=== PATIENT | female | born 1955 | race Caucasian/White ===

== ENCOUNTER 2019-07-27 13:39 | Emergency (ER) | payer SELFPAY ==
[~2019-07-27] VITALS: Ht 149.9 cm; Wt 85.0 kg
[~2019-07-27 13:39] MED LIST: ENAL10TA PO
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
[2019-07-27] MEDS ORDERED: LISINOPRIL-HCTZ (13:55)
[2019-07-27] MEDS ORDERED: AMLODIPINE (13:55)
--- NOTE | 2019-07-27 13:58 | NUR ---
PA AT BEDSIDE.
--- NOTE | 2019-07-27 14:27 | NUR ---
pt at xray, unable to medicate.
[2019-07-27] MEDS ORDERED: HYDROcodone/APAP 5/325 TABLET PO ONE (14:30)
[2019-07-27] MEDS ORDERED: HYDROcodone/APAP 5/325 TABLET ONE (14:36)
--- NOTE | 2019-07-27 14:44 | NUR ---
LUNCH RN: Pt medicated for pain.
[2019-07-27 15:05] VITALS: BP 149/67
--- NOTE | 2019-07-27 15:19 | NUR ---
PT TO RADIOLOGY.
--- NOTE | 2019-07-27 15:39 | NUR ---
PT BACK FROM IMAGING.
--- NOTE | 2019-07-27 16:06 | NUR ---
Patient/Caregiver given discharge instructions and they have confirmed that they understand the instructions. Patient ambulatory with steady gait.
== END 2019-07-27 16:21 | disposition home or self-care (01) ==
LOC: ED 16:15
DX: S16.1XXA Strain of muscle, fascia and tendon at neck level, initial encounter (principal); S39.012A Strain of muscle, fascia and tendon of lower back, initial encounter; M47.896 Other spondylosis, lumbar region; V49.49XA Driver injured in collision with other motor vehicles in traffic accident, initial encounter; I10 Essential (primary) hypertension; Y92.410 Unspecified street and highway as the place of occurrence of the external cause; Y99.8 Other external cause status; Y93.89 Activity, other specified
CPT/HCPCS: 70450; 72110; 72125; 99284

== ENCOUNTER 2021-01-24 16:46 | Emergency (ER) | payer OTHER ==
[~2021-01-24] VITALS: Ht 139.7 cm; Wt 87.5 kg
[~2021-01-24 16:46] MED LIST changes: +AMLODIPINE; -ENAL10TA PO; +ENAL10TA9 PO; +LISINOPRIL-HCTZ
--- NOTE | 2021-01-24 16:58 | NUR ---
EKG IN TRIAGE.
[2021-01-24] MEDS ORDERED: PIOG15TA69 PO (17:01)
[2021-01-24] MEDS ORDERED: METF500T17 PO (17:01)
[2021-01-24] MEDS ORDERED: LISI1TAB39 PO (17:01)
[2021-01-24] MEDS ORDERED: AMLO-211 PO (17:01)
[2021-01-24 17:58] LABS: BASOPHILS % (AUTO) 1 % (0-1); EOSINOPHILS % (AUTO) 1 % (1-7); LYMPHOCYTES % (AUTO) 17 % (22-44); MEAN CORPUSCULAR HEMOGLOBIN 30.4 pg (27.0-34.8); MEAN CORPUSCULAR HGB CONC 33.3 g/dL (32.4-35.8); MEAN PLATELET VOLUME 10.3 fL (7.4-10.4); MONOCYTES % (AUTO) 10 % (2-9); NEUTROPHILS % (AUTO) 72 % (42-75); PLATELET COUNT 237 x10^3/uL (130-400); RED BLOOD COUNT 4.36 x10^6/uL (3.82-5.3); RED CELL DISTRIBUTION WIDTH 14.2 % (9.6-15.2)
[2021-01-24 18:06] LABS: ALANINE AMINOTRANSFERASE 24 U/L (12-78); ALBUMIN 3.6 g/dL (3.4-5.0); ANION GAP 7 mmol/L (5-15); CALCIUM 8.8 mg/dL (8.5-10.1); CHLORIDE 105 mmol/L (98-107); CREATININE 0.68 mg/dL (0.55-1.02)
[2021-01-24 18:10] LABS: ALKALINE PHOSPHATASE 111 U/L (45-117); BILIRUBIN,TOTAL 0.2 mg/dL (0.2-1.0); TOTAL PROTEIN 7.7 g/dL (6.4-8.2); TROPONIN I < 0.015 ng/mL (0.000-0.045)
--- NOTE | 2021-01-24 18:13 | NUR ---
meteorological aide: Pt ambulatory to room from lobby at this time.
--- NOTE | 2021-01-24 18:30 | NUR ---
Pt connected to all monitors, KONG.
--- NOTE | 2021-01-24 18:39 | NUR ---
Pt reports nondescript chest pain that goes to her back that started 4 days ago. Pt decided to come to the ER today when she suddenly felt dizzy, nauseous and had a LÓPEZ. Pt reports a feeling of her tounge falling asleep and trouble finding words. States these symptoms lasted 15 minutes. reported not noting difference in pt's speech. MD Chase at bedside.
--- NOTE | 2021-01-24 19:01 | NUR ---
Report to NATALIA Troncoso for pt's d/c.
[2021-01-24 19:36] VITALS: BP 145/51
== END 2021-01-24 19:41 | disposition home or self-care (01) ==
LOC: ED 17:30
DX: R07.89 Other chest pain (principal); I10 Essential (primary) hypertension; E11.9 Type 2 diabetes mellitus without complications; R42 Dizziness and giddiness; R94.31 Abnormal electrocardiogram [ECG] [EKG]
CPT/HCPCS: 36415; 71045; 80053; 84484; 85025; 93005; 99285